=== PATIENT | female | born 1950 | race Caucasian/White ===

== ENCOUNTER 2016-07-27 11:51 | Emergency (ER) | payer OTHER ==
[2016-07-27 12:01] VITALS: TEMP 98; BMI 32.4
[2016-07-27] MEDS ORDERED: METOCLOPRAMIDE HCL INJECTION 10 MG/2 ML VIAL IVPB ONE (13:26)
[2016-07-27] MEDS ORDERED: SODIUM CHLORIDE 1,000 ML IV STA (13:26)
--- NOTE | 2016-07-27 13:26 | PDOC ---
History of Present Illness - History of Present Illness Initial Comments: 07/27/16 13:38 The patient is a 65 year old female, with a significant past medical history of hypertension, TIA, CABG, GERD, s/p nephrectomy, who presents to the emergency department with high blood pressure and headache today. She states she first noticed her blood pressure was high while she was getting labs drawn for evaluation of abdominal pain. She reports taking her blood pressure medication once she noticed her pressure was high, but reports noticing her blood pressure was still high when she had her pressure retaken before having an ultrasound performed. The patient states she is concerned about her hypertension because her doctor recently adjusted the dosage of her medication and the medication did not resolve her blood pressure problem this morning. She also states she was seen in the ER in 2002 for a headache and was told she was having a mini stroke. She complains of a headache today and is concerned about the possibility of another stroke. She denies photophobia. She denies chest pain, shortness of breath, and dizziness. She denies fever, chills, nausea, vomit, diarrhea and constipation. She denies dysuria, frequency , urgency and hematuria. Allergies: NKDA Past surgical history: right nephrectomy, foramen ovale closure device Social history: Denies toxic habits PCP - Dr. Estrada Intermediate Designer - Dr. 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) Cardiac Surgery: Yes (FORAMEN OVALE CLOSURE DEVICE) - Immunization History Td Vaccination: Yes Immunization Up to Date: Yes - Psycho/Social/Smoking Cessation Hx Anxiety: No Suicidal Ideation: No Smoking Status: No Smoking History: Never smoked Number of Cigarettes Smoked Daily: 0 Information on smoking cessation initiated: No Hx Alcohol Use: No Drug/Substance Use Hx: No Substance Use Type: None <Kassy Morfin - Last Filed: 07/28/16 07:42> - Past Medical History Allergies/Adverse Reactions: Allergies Allergy/AdvReac Type Severity Reaction Status Date / Time codeine Allergy Verified 07/27/16 12:01 tylenol 3 Allergy Uncoded 07/27/16 12:01 Home Medications: Ambulatory Orders Ergocalciferol (Vitamin D2) [Vitamin D2] 50,000 unit PO WEEKLY 07/27/16 Lisinopril/Hydrochlorothiazide [Lisinopril-Hctz 10-12.5 mg Tab] 1 each PO DAILY 07/27/16 Meloxicam 7.5 mg PO DAILY 07/27/16 Omeprazole 40 mg PO DAILY 07/27/16 Review of Systems - Review of Systems Able to Perform ROS?: Yes Comments:: 07/27/16 13:38 GENERAL/CONSTITUTIONAL: No fever or chills. No weakness. HEAD, EYES, EARS, NOSE AND THROAT: No change in vision. No ear pain or discharge. No sore throat. CARDIOVASCULAR: (+) hypertension. No chest pain or shortness of breath. RESPIRATORY: No cough, wheezing, or hemoptysis. GASTROINTESTINAL: No nausea, vomiting, diarrhea or constipation. GENITOURINARY: No dysuria, frequency, or change in urination. MUSCULOSKELETAL: No joint or muscle swelling or pain. No neck or back pain. SKIN: No rash NEUROLOGIC: (+) headache, No vertigo, loss of consciousness, or change in strength/sensation. ENDOCRINE: No increased thirst. No abnormal weight change. HEMATOLOGIC/LYMPHATIC: No anemia, easy bleeding, or history of blood clots. ALLERGIC/IMMUNOLOGIC: No hives or skin allergy. <Amber Madrigal - Last Filed: 07/27/16 15:27> *Physical Exam - Vital Signs Last Vital Signs Temp Pulse Resp BP Pulse Ox 98 F 115 H 18 170/98 96 07/27/16 11:58 07/27/16 11:58 07/27/16 11:58 07/27/16 11:58 07/27/16 11:58 - Physical Exam Comments: 07/27/16 13:39 GENERAL: Awake, alert, and fully oriented, in no acute distress HEAD: No signs of trauma EYES: PERRLA, EOMI, sclera anicteric, conjunctiva clear ENT: Auricles normal inspection, hearing grossly normal, nares patent, oropharynx clear without exudates. Moist mucosa NECK: Normal ROM, supple, no lymphadenopathy, JVD, or masses LUNGS: Breath sounds equal, clear to auscultation bilaterally. No wheezes, and no crackles HEART: Regular rate and rhythm, normal S1 and S2, no murmurs, rubs or gallops ABDOMEN: Soft, nontender, normoactive bowel sounds. No guarding, no rebound. No masses EXTREMITIES: Normal range of motion, no edema. No clubbing or cyanosis. No cords, erythema, or tenderness NEUROLOGICAL: Cranial nerves II through XII grossly intact. Normal speech, normal gait SKIN: Warm, Dry, normal turgor, no rashes or lesions noted. <Amber Madrigal - Last Filed: 07/27/16 15:27> - Vital Signs Last Vital Signs Temp Pulse Resp BP Pulse Ox 98 F 115 H 18 170/98 96 07/27/16 11:58 07/27/16 11:58 07/27/16 11:58 07/27/16 11:58 07/27/16 11:58 <Kassy Morfin - Last Filed: 07/28/16 07:42> ED Treatment Course - RADIOLOGY Radiograph Interpretation: 07/27/16 15:[address] was read by Dr. Foster at 15:18 Impression: No acute bleed or fracture. No acute infarct <Amber Madrigal - Last Filed: 07/27/16 15:27> Medical Decision Making - Medical Decision Making CT results d/w patient. She reports improvement in headache. No neuro deficits. BP improved with management of her pain. Stable for DC home. <Kassy Morfin - Last Filed: 07/28/16 07:42> *DC/Admit/Observation/Transfer - Attestations Scribe Attestion: 07/27/16 13:39 Documentation prepared by Amber Madrigal, acting as biomedical scientist for Kassy Morfin MD <Amber Madrigal - Last Filed: 07/27/16 15:27> - Discharge Dispostion Admit: No <Kassy Morfin - Last Filed: 07/28/16 07:42> Diagnosis at time of Disposition: Headache Qualifiers: Headache type: unspecified Headache chronicity pattern: acute headache Intractability: not intractable Qualified Code(s): R51 - Headache Hypertension Qualifiers: Hypertension type: essential hypertension Qualified Code(s): I10 - Essential ( primary) hypertension - Discharge Dispostion Condition at time of disposition: Stable - Referrals Referrals: Jackson Estrada [Primary Care Provider] - - Patient Instructions Printed Discharge Instructions: DI for High Blood Pressure, DI for Headache, How to Monitor Your Blood Pressure at Home Print Language: EGYPTIAN
[2016-07-27] MEDS ORDERED: ACETAMINOPHEN 1000 MG/100 ML VIAL (NON FORMULARY) IVPB ONE (13:28)
[2016-07-27] MEDS ORDERED: METOCLOPRAMIDE HCL INJECTION 10 MG/2 ML VIAL ONE (13:46)
[2016-07-27] MEDS ORDERED: ACETAMINOPHEN INJECTION 100 ML IVPB ONE (13:46)
[2016-07-27 16:00] VITALS: BP 138/87; PULSE 92
== END 2016-07-27 16:19 | disposition home or self-care (01) ==
LOC: JER 11:51
PROC: 3E033NZ Introduction of Analgesics, Hypnotics, Sedatives into Peripheral Vein, Percutaneous Approach (ICD-10-PCS; principal; 2016-07-27)
PROC: 3E033GC Introduction of Other Therapeutic Substance into Peripheral Vein, Percutaneous Approach (ICD-10-PCS; 2016-07-27)
PROC: 3E0337Z Introduction of Electrolytic and Water Balance Substance into Peripheral Vein, Percutaneous Approach (ICD-10-PCS; 2016-07-27)
DX: I10 Essential (primary) hypertension (principal); I25.10 Atherosclerotic heart disease of native coronary artery without angina pectoris; Z95.1 Presence of aortocoronary bypass graft; K21.9 Gastro-esophageal reflux disease without esophagitis; Z86.73 Personal history of transient ischemic attack (TIA), and cerebral infarction without residual deficits; Z90.5 Acquired absence of kidney
CPT/HCPCS: 70450-TC; 96361; 96374; 96375; 99283-25

== ENCOUNTER 2017-01-07 20:15 | Emergency (ER) | payer MEDICARE, OTHER ==
[2017-01-07 20:39] VITALS: BP 159/102; PULSE 89; TEMP 97.9; BMI 30.8
== END 2017-01-08 00:53 | disposition left against medical advice (07) ==
LOC: JER 20:15
DX: Z53.21 Procedure and treatment not carried out due to patient leaving prior to being seen by health care provider (principal)
CPT/HCPCS: 99281-25